=== PATIENT | female | born 1980 | race Caucasian/White ===

== ENCOUNTER 2020-10-02 10:15 | Inpatient (IN) ==
[2020-09-30 10:41] LABS: Basophils % 0.5 % (0.0-0.8); Eosinophils # 0.2 10*3/uL (0.0-0.87); Eosinophils % 2.7 % (0.00-10.9); Hematocrit 41.8 VOL% (35.7-47.0); Immature Granulocytes % 0.4 %; Immature Granulocytes Absolute 0.03 #; Lymphocytes % 27.6 % (21.3-54.2); Mean Corpuscular HGB Conc 33.5 GM/DL (32-36); Mean Corpuscular Volume 91.1 FL (87-102); Mean Platelet Volume 10.8 FL (9.6-12.0); Monocytes % 5.2 % (1.7-12.7); Neutrophils % 63.6 % (38.7-73.9); Platelet Count 256 T/CUMM (130-400); Red Blood Count 4.59 MC/CUMM (3.8-5.5); White Blood Count 7.4 T/CUMM (4-12)
[2020-09-30 11:13] LABS: Alanine Aminotransferase 30 U/L (13-56); Albumin 3.9 G/DL (3.4-5.0); Alkaline Phosphatase 98 U/L (45-117); Aspartate Amino Transferase 19 U/L (0-37); Bilirubin,Total < 0.39 MG/DL (0.2-1.0); Bilirubin,Urine Negative (Negative); Blood Urea Nitrogen 15 MG/DL (7-18); Blood, Urine Large mg/dL (Negative); Carbon Dioxide 27 MMOL/L (21-32); Estimated Glom Filtration Rate 170 ML/MIN; Glucose 101 MG/DL (74-106); Glucose,Urine (UA) Negative (Negative); HDL Cholesterol 51 MG/DL (40-60); Hyaline Casts,Urine 4 /LPF (0-3); Ketones,Urine 5 mg/dL (Negative); Mucus,Urine Few /LPF (Occasional); Nitrite,Urine Negative (Negative); Osmolality,Calculated 275.7 MOS/KG (273-304); Protein,Urine Negative; RBC,Urine 628 /HPF (0-4); Risk Ratio 3.78; Sodium 138 MMOL/L (136-145); Squamous Epithelial Cell,Urine Occasional /HPF (0-10); Total Protein 7.2 G/DL (6.4-8.2); Triglycerides 111 MG/DL (2-150); Urine Appearance CLOUDY (Clear); Urine Color Yellow (Yellow); Urine Specific Gravity 1.024 (1.001-1.035); Urine Urobilinogen < 2.0 EU/DL (0.2-1.0); VLDL CHOLESTEROL 22.2 MG/DL
[2020-09-30 11:40] LABS: HIV Antigen/Antibody Result Nonreactive (Nonreactive)
[~2020-10-02 10:15] MED LIST: AMPICILLIN/SULBACTAM 3,000 MG in SODIUM CHLORIDE 0.9% 100 ML IV ONE
[2020-10-02] MEDS ORDERED: DIAZEPAM 5 MG TABLET PO ONE (10:43)
[2020-10-02] MEDS ORDERED: FAMOTIDINE 20 MG TABLET PO ONE (10:43)
[2020-10-02] MEDS ORDERED: LACTATED RINGERS 1,000 ML IV SCH (11:00)
[2020-10-02] MEDS ORDERED: SUCCINYLCHOLINE 200 MG/10 ML VIAL ONE (11:52)
[2020-10-02] MEDS ORDERED: DEXAMETHASONE 4 MG/1 ML VIAL ONE ×2 (13:03→13:56)
[2020-10-02] MEDS ORDERED: propofoL 200 MG/20 ML VIAL IV ONE (13:03)
[2020-10-02] MEDS ORDERED: ROCURONIUM 50 MG/5 ML VIAL IV ONE (13:03)
[2020-10-02] MEDS ORDERED: LIDOCAINE 2% 5 ML VIAL ONE (13:03)
[2020-10-02] MEDS ORDERED: MIDAZOLAM 2 MG/2 ML VIAL ONE (13:03)
[2020-10-02] MEDS ORDERED: ONDANSETRON 4 MG/2 ML VIAL ONE (13:03)
[2020-10-02] MEDS ORDERED: ACETAMINOPHEN 1,000 MG/100 ML VIAL IV ONE (13:06)
[2020-10-02] MEDS ORDERED: SEVOFLURANE 1 UNIT/15 MINUTE INH ONE (13:06)
[2020-10-02] MEDS ORDERED: KETOROLAC 30 MG/1 ML VIAL ONE (13:06)
[2020-10-02] MEDS ORDERED: SUFentanil 50 MCG/ML AMP ONE (13:08)
[2020-10-02] MEDS ORDERED: GLYCOPYRROLATE 0.4 MG/2 ML VIAL ONE (13:37)
[2020-10-02] MEDS ORDERED: NEOSTIGMINE 10 MG/10 ML VIAL ONE (13:37)
[2020-10-02] MEDS ORDERED: ePHEDrine 50 MG/ML VIAL ONE (14:13)
[2020-10-02] MEDS ORDERED: PHENYLEPHRINE 1 MG/10 ML SYRINGE IV ONE ×2 (14:14→15:25)
[2020-10-02] MEDS ORDERED: LACTATED RINGERS 1,000 ML IV ONE (14:45)
[2020-10-02] MEDS ORDERED: BISACODYL 10 MG SUPP RECTAL PRN (15:56)
[2020-10-02] MEDS ORDERED: BENZOCAINE/MENTHOL LOZENGE 18/BOX PO PRN (15:56)
[2020-10-02] MEDS ORDERED: ACETAMINOPHEN 325 MG TABLET PO PRN (15:56)
[2020-10-02] MEDS ORDERED: ONDANSETRON 4 MG/2 ML VIAL IV PRN ×2 (15:56→16:07)
[2020-10-02] MEDS ORDERED: HYDROmorphone 2 MG/1 ML VIAL IV PRN ×2 (15:57→16:07)
[2020-10-02] MEDS ORDERED: flumazeniL 0.5 MG/5 ML VIAL IV ONE (16:23)
[2020-10-02 16:32] LABS: Bilirubin,Urine Negative (Negative); Blood, Urine Negative (Negative); Glucose,Urine (UA) Negative (Negative); Ketones,Urine 5 mg/dL (Negative); Mucus,Urine Occasional /LPF (Occasional); Nitrite,Urine Negative (Negative); Protein,Urine Negative; RBC,Urine 2 /HPF (0-4); Squamous Epithelial Cell,Urine Occasional /HPF (0-10); Urine Appearance CLEAR (Clear); Urine Color Yellow (Yellow); Urine Specific Gravity 1.021 (1.001-1.035); Urine Urobilinogen < 2.0 EU/DL (0.2-1.0); WBC,Urine <1 /HPF (0-6)
[2020-10-02] MEDS: LACTATED RINGERS 1,000 ML IV SCH ×2 (18:50→18:52)
[2020-10-02] MEDS: IBUPROFEN 800 MG TABLET PO PRN (20:03)
[2020-10-02] MEDS: ceFAZolin 2,000 MG in PREMIX 1 EACH IV SCH (21:57)
[2020-10-02 23:04] LABS: Basophils % 0.1 % (0.0-0.8); Hematocrit 39.5 VOL% (35.7-47.0); Hemoglobin 13.1 GM/DL (12.0-16.0); Immature Granulocytes % 0.4 %; Immature Granulocytes Absolute 0.06 #; Lymphocytes # 0.9 10*3/uL (1.4-4.0); Lymphocytes % 6.3 % (21.3-54.2); Mean Corpuscular HGB Conc 33.2 GM/DL (32-36); Mean Corpuscular Volume 91.6 FL (87-102); Mean Platelet Volume 10.7 FL (9.6-12.0); Monocytes % 2.4 % (1.7-12.7); Neutrophils % 90.8 % (38.7-73.9); Platelet Count 244 T/CUMM (130-400); Red Blood Count 4.31 MC/CUMM (3.8-5.5); White Blood Count 13.5 T/CUMM (4-12)
[2020-10-03 00:29] LABS: Lymphocytes 8 % (20-55); Platelet Estimate Adequate; Segmented Neutrophils 91 % (50-85); Total Cells Counted 100
[2020-10-03 06:00] LABS: Basophils % 0.1 % (0.0-0.8); Hematocrit 38.4 VOL% (35.7-47.0); Hemoglobin 12.6 GM/DL (12.0-16.0); Immature Granulocytes % 0.5 %; Immature Granulocytes Absolute 0.06 #; Lymphocytes % 8.5 % (21.3-54.2); Mean Corpuscular HGB Conc 32.8 GM/DL (32-36); Mean Platelet Volume 10.4 FL (9.6-12.0); Monocytes % 4.4 % (1.7-12.7); Neutrophils % 86.5 % (38.7-73.9); Platelet Count 294 T/CUMM (130-400); Red Blood Count 4.13 MC/CUMM (3.8-5.5); Red Cell Distribution Width 13.2 % (9.3-17.3); White Blood Count 12.1 T/CUMM (4-12)
[2020-10-03] MEDS: ceFAZolin 2,000 MG in PREMIX 1 EACH IV SCH (06:08)
[2020-10-03] MEDS: MAGNESIUM HYDROXIDE SUSP 30 ML UDCUP PO PRN ×2 (08:41→21:33)
[2020-10-03] MEDS: DOCUSATE SODIUM 100 MG CAPSULE PO PRN ×2 (08:41→21:33)
[2020-10-03] MEDS: METOCLOPRAMIDE 10 MG TABLET PO SCH ×3 (08:41→23:03)
[2020-10-03] MEDS: SIMETHICONE CHEW 80 MG TABLET PO PRN ×2 (08:41→21:33)
[2020-10-03] MEDS: IBUPROFEN 800 MG TABLET PO PRN (16:05)
[2020-10-04] MEDS: IBUPROFEN 800 MG TABLET PO PRN (04:43)
[2020-10-04] MEDS: SIMETHICONE CHEW 80 MG TABLET PO PRN (08:50)
[2020-10-04] MEDS: DOCUSATE SODIUM 100 MG CAPSULE PO PRN (08:51)
[2020-10-04] MEDS: METOCLOPRAMIDE 10 MG TABLET PO SCH (09:19)
[2020-10-04 10:37] VITALS: BP 117/67
== END 2020-10-04 13:30 | disposition home or self-care (01) | DRG 743 ==
LOC: N.OR 10:15 → N.SDSINP 10:18 → EDSTATUS 12:15 → N.OB 15:55
PROVIDERS: ADMIT Obstetrics & Gynecology; ATTEND Obstetrics & Gynecology